=== PATIENT | female | born 1950 | race Caucasian/White ===

== ENCOUNTER 2024-03-11 10:30 | Outpatient (RCR) | payer OTHER, MEDICAID, SELFPAY ==
--- NOTE | 2024-02-26 14:53 | PT.OIERPT ---
PT OP Initial Eval Patient Information Outpatient Physical Therapy Treatment Date: 02/26/24 Visit Reasons: Lumbar Spine Medical Diagnosis: M54.16 Treatment Dx #1: Back Pain Treatment Dx #2: L/S Mobility Deficits Start of Care: 02/26/24 Smoking Status Smoking Status: Never smoker Initial Assessment Subjective: Pt is a 73 y/o female reports of chronic back pain with nerve damage R>L LE. Pt also stated that both femurs has rods with bone on bone at the knee. Pt's past MRI showed multi level disc bulge worse at L5-S1. Pt has limitation with standing, walking, chores, self care, and balance. Objective: L/S AROM (in sitting): all motions are WFL Hip PROM: all motions are WFL Hip MMTs: grossly 3-/5 Gait Observation: flexed posture with 4ww Assessment: Pt demonstrate back pain with mobility deficits leading to difficulty with ADLs. Pt will attempt physical therapy if pain persist Pt will be refer back to provider for further consultation. Short Term and Butadiene Converter Operator Goals 1) Increase L/S AROM WNL in 6 wks to be able to perform chores 2) Decrease back pain to 2/10 in 6 wks to be able to stand more than 20 mins 3) Increase BLE MMTs grossly to 3+/5 in 6 wks to be able to walk more than 30 mins 4) Improve posture with standing and walking in 6 wks 5) Indep with HEP Treatment Plan 1) Manual Therapy 2) Therapeutic Activities 3) Therapeutic Exercises 4) Modalities (ice, heat) 5) Balance Training 6) Gait Training Frequency and Duration: 2 x wk for 6 wks Certification Dates: 02/26/24 to 05/28/24 Procedure Charges OP PT Eval Mod Complex 30 minutes: Yes
--- NOTE | 2024-03-03 10:49 | PT.ODAYNRPT ---
PT Outpatient Daily Note OP Daily Note Outpatient Physical Therapy Treatment Date: 03/03/24 Visit Reasons: Lumbar Spine Subjective: Pt c/o LBP. Objective: Please see flow sheet for ther ex list. Assessment: Interventions givien in sitting to maximize pt participation, pt demonstrates poor standing tolerance. Plan: Continue with pOC. Length of Time (minutes) of Treatment: 30 Minutes ANTENNA ENGINEER Service Modifier Method I: Divide the number of min of care provided by the ANTENNA ENGINEER/ANDRE by the total min of care provided then multiply by 100. If greater than 11 percent modifier is required. Method II: Divide the total time of care provided to patient by 10 (round to the nearest whole number) and add 1 min. to set the minimum time requirement. If treatment total was 60 min., then 10% of 6 min PT CQ modifier applied: CQ Modifier applied Procedure Charges Therapeutic Exercise 30 minutes: Yes
--- NOTE | 2024-03-11 10:40 | PT.ODAYNRPT ---
PT Outpatient Daily Note OP Daily Note Outpatient Physical Therapy Treatment Date: 03/11/24 Visit Reasons: Lumbar Spine Subjective: Pt's back is about the same. Pt continues to have pain with walking and standing. Objective: Please see flow chart for list of ther ex performed Assessment: seated heat helped patient tolerate ther ex. Difficulty performing seated nerve due to limited knee ROM; modified flossing to ankle only Plan: Continue with PT Length of Time (minutes) of Treatment: 30 Minutes Procedure Charges Therapeutic Exercise 30 minutes: Yes
== END 2024-03-14 23:59 | disposition home or self-care (01) ==
LOC: CPTX 10:30
PROVIDERS: PCP Physical Medicine & Rehabilitation Pain Medicine; Referring Provider Physical Medicine & Rehabilitation Pain Medicine; Visit Provider Physical Medicine & Rehabilitation Pain Medicine
DX: M54.16 Radiculopathy, lumbar region (principal); R26.2 Difficulty in walking, not elsewhere classified; R26.89 Other abnormalities of gait and mobility
CPT/HCPCS: 97110; 97162

== ENCOUNTER 2024-04-03 11:00 | Outpatient (RCR) | payer OTHER, MEDICAID, SELFPAY ==
--- NOTE | 2024-03-18 09:15 | PT.ODAYNRPT ---
PT Outpatient Daily Note OP Daily Note Outpatient Physical Therapy Treatment Date: 03/18/24 Subjective: Pt reports she was mostly movig around in her wheel chair over the holiday when she had family over so back is really sore and stiff. Objective: Please see flow sheet for ther ex list. Assessment: Pt instructed on lateral stepping, pt demonstrates excessive trunk flexion can slight correct for short time but then reverts to stooped posture due to pain. Plan: Continue with POC. Length of Time (minutes) of Treatment: 30 Minutes PARK ACTIVITIES COORDINATOR Service Modifier Method I: Divide the number of min of care provided by the PARK ACTIVITIES COORDINATOR/STEAM TABLE ATTENDANT by the total min of care provided then multiply by 100. If greater than 11 percent modifier is required. Method II: Divide the total time of care provided to patient by 10 (round to the nearest whole number) and add 1 min. to set the minimum time requirement. If treatment total was 60 min., then 10% of 6 min PT CQ modifier applied: CQ Modifier applied Procedure Charges Therapeutic Exercise 30 minutes: Yes
--- NOTE | 2024-03-20 14:31 | PT.ODAYNRPT ---
PT Outpatient Daily Note OP Daily Note Outpatient Physical Therapy Treatment Date: 03/20/24 Subjective: Pt's back is still hurting but notice she can move her legs a little more with less difficulty. Objective: Please see flow chart for list of ther ex performed Assessment: BLE improvement noted with nerve flossing and during gait. Plan: Continue with PT Length of Time (minutes) of Treatment: 30 Minutes Procedure Charges Therapeutic Exercise 30 minutes: Yes
--- NOTE | 2024-03-25 11:25 | PT.ODAYNRPT ---
PT Outpatient Daily Note OP Daily Note Outpatient Physical Therapy Treatment Date: 03/25/24 Subjective: Pt hurt her shoulder a day ago. Pt still wants to do as many exercises as able. Objective: Please see flow chart for list of ther ex performed Assessment: patient was able to complete instructed exercises despite the reported shoulder pain. Pt exhibit improved Hs length post stretching Plan: Continue with PT Length of Time (minutes) of Treatment: 30 Minutes Procedure Charges Therapeutic Exercise 30 minutes: Yes
--- NOTE | 2024-03-27 15:40 | PT.ODAYNRPT ---
PT Outpatient Daily Note OP Daily Note Outpatient Physical Therapy Treatment Date: 03/27/24 Subjective: Pt feels much better and has been able to move more with ease inside her house. Objective: Please see flow chart for list of ther ex Assessment: demonstrate improve with BLE mobility during nerve flossing and Hs stretching. Pt progressing with overall mobility Plan: Continue with PT Length of Time (minutes) of Treatment: 30 Minutes Procedure Charges Therapeutic Exercise 30 minutes: Yes
--- NOTE | 2024-04-03 12:50 | PTNOTE_ITS ---
PT Outpatient Daily Note OP Daily Note Outpatient Physical Therapy Treatment Date: 04/03/24 Subjective: Pt reports noticing she can move more and do things around her home. As per pt she is going to have a change of insurance and a change of primary doctor. Objective: Please see flow sheet for the ex list. Assessment: Pt demonstrates poor standing tolerance, interventions perform mostly in sitting. Plan: Pt has completed 03/26 visits.Pt to return at the beginning of the new year with new rx from new primary care doctor. Length of Time (minutes) of Treatment: 30 Minutes AUTO SELF SERVICE STATION ATTENDANT Service Modifier Method I: Divide the number of min of care provided by the AUTO SELF SERVICE STATION ATTENDANT/PHOTOCOMPOSITION KEYBOARD OPERATOR by the total min of care provided then multiply by 100. If greater than 11 percent modifier is required. Method II: Divide the total time of care provided to patient by 10 (round to the nearest whole number) and add 1 min. to set the minimum time requirement. If treatment total was 60 min., then 10% of 6 min PT CQ modifier applied: CQ Modifier applied Procedure Charges Therapeutic Exercise 30 minutes: Yes
--- NOTE | 2024-04-06 12:57 | PT.ODS1RPT ---
PT OP Progress/Discharge Note Date of Service: 04/06/24 Progress Note/DC Note Progress Note/Discharge Note: DC Note Service Discharge Date: 04/06/24 Status Assessment: Pt has been seen for 8 visits (eval + 7 visits). Pt will be d/c from care due to change in insurance Apr 2024. Pt did not meet set goals in therapy; thank you for your referrals.
== END 2024-04-14 23:59 | disposition home or self-care (01) ==
LOC: CPTX 11:00
PROVIDERS: PCP Physical Medicine & Rehabilitation Pain Medicine; Referring Provider Physical Medicine & Rehabilitation Pain Medicine; Visit Provider Physical Medicine & Rehabilitation Pain Medicine
DX: M54.16 Radiculopathy, lumbar region (principal)
CPT/HCPCS: 97110

== ENCOUNTER → 2024-04-20 | Outpatient (CLI) | payer MEDICARE, MEDICAID, SELFPAY ==
--- NOTE | 2024-04-20 13:20 | XR_ITS ---
Examination: Bone densitometry Date and time of exam:April 20, 2023 1408 hours INDICATIONS: Menopause age 53, postmenopausal femur and spine fracture, diabetic, vitamin D and calcium 6 years, family history, mother, osteoporosis Technique: Lumbar spine and hip total bone mineralization values of an calculated. Peak reference and age match control results have been displayed. Findings: Hip total bone mineralization is1.472 gm/cm2. This is 4.3 standard deviations above peak reference. This is 6.2 standard deviations above age-matched controls. Lumbar spine total bone mineralization is 1.82 gm/cm2 This is 7.6 standard deviations above peak reference. This is 10.0 standard deviations above age-matched controls Impression: There is normal mineralization based on lumbar spine measurements. There is normal mineralization based on hip measurements Lumbar mineralization is increased 5.8% compared with 01/03/2021 Hip mineralization is increase 72.5% compared with 01/03/2021
== END | disposition home or self-care (01) ==
PROVIDERS: PCP Nurse Practitioner; Referring Provider Nurse Practitioner; Visit Provider Nurse Practitioner
DX: M85.80 Other specified disorders of bone density and structure, unspecified site (principal)
CPT/HCPCS: 77080

== ENCOUNTER → 2024-04-28 | Outpatient (CLI) | payer MEDICARE, MEDICAID, SELFPAY ==
--- NOTE | 2024-04-28 13:00 | XR_ITS ---
Examination: Screening digital mammography, bilateral Computer aided detection 3-D breast Tomosynthesis, bilateral Date and time of exam: April 28, 2024 1253 hrs. Compared to mammograms dating to April 05, 2014 Indication: Screening Technique: Nonmagnified MLO, CC views of the breasts to been obtained, reconstructed from 3-D Tomosynthesis images. R2 computer aided detection program utilized for evaluation of suspicious masses and/or abnormal calcifications. 3-D Tomosynthesis images obtained. Findings: Scattered areas of fibroglandular density. Benign calcifications. Stable focal asymmetric glandular tissue central left breast CC view Impression: BI-RADS category II: Benign Findings. Recommend 1 year follow-up mammogram.
== END | disposition home or self-care (01) ==
PROVIDERS: PCP Nurse Practitioner; Referring Provider Nurse Practitioner; Visit Provider Nurse Practitioner
DX: Z12.31 Encounter for screening mammogram for malignant neoplasm of breast (principal); R92.323 Mammographic fibroglandular density, bilateral breasts; R92.1 Mammographic calcification found on diagnostic imaging of breast
CPT/HCPCS: 77063; 77067